=== PATIENT | female | born 1980 | race Caucasian/White ===

== ENCOUNTER 2022-06-22 10:17 | Emergency (ER) | payer OTHER ==
[2022-06-22] MEDS ORDERED: DUONEB 0.5-3 MG/3 ml Neb IH ONE ×2 (10:36→10:44)
[2022-06-22] MEDS ORDERED: HYDROCODONE-ACETAMIN 2.5-108/5 ML SOLUTION PO STA (10:37)
[2022-06-22] MEDS ORDERED: DECADRON 10MG INJ. IV ONE (10:37)
--- NOTE | 2022-06-22 10:41 | ERPHSYRPT ---
- History of Present Illness Time Seen by Provider: 06/22/22 10:24 Source: patient Exam Limitations: no limitations Patient Subjective Stated Complaint: PT states "I am positive for covid and I am coughing so much and not sleeping, I feel terrible." Triage Nursing Assessment: PT presented alert and oriented X 3, skin pwd. Pt tachypneic, coughing, resting comfortably on the bed. Physician History: 42 years old female presented ER with chief complaint of nonproductive cough with fever chills and positive COVID-19 for almost 1 week. Patient reports worsening of cough lately and having shortness of breath with activities and better with resting. Her oxygen is dropping to 88% on room air with activities. Complaining of some chest tightness and heaviness/soreness because of repeated coughing. Her fever broke 2 days ago and now feeling weak fatigued tired with lack of energy to do her routine activities. Timing/Duration: week(s) (1), gradual onset, worse Activities at Onset: activity, rest Severity of Dyspnea-Max: moderate Severity of Dyspnea-Current: moderate Possible Cause: illness exposure Modifying Factors: Worsens With: coughing, exertion Associated Symptoms: cough, chest pain/discomfort, fever, loss of appetite, wheezing, tightness Allergies/Adverse Reactions: No Known Drug Allergies Allergy (Verified 06/22/22 10:24) Home Medications: Sertraline HCl [Zoloft] 100 mg PO DAILY 06/22/22 [History] hydroCHLOROthiazide [Hydrochlorothiazide] 25 mg PO DAILY 06/22/22 [History] Hx Tetanus, Diphtheria Vaccination/Date Given: Yes (4 years ago) Hx Influenza Vaccination/Date Given: Yes (aug) Hx Pneumococcal Vaccination/Date Given: No Travel Risk - International Travel Have you traveled outside of the country in past 3 weeks: No - Coronavirus Screening Are you exhibiting any of the following symptoms?: Yes Symptoms: Cough: New Onset, Shortness of Breath Close contact with a COVID-19 positive Pt in past 14-21 Days: No - Vaccine Status Have you recieved a Covid-19 vaccination: Yes 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: [employer] - Review of Systems Constitutional: Fatigue, Weakness Eyes: No Symptoms Ears, Nose, & Throat: Nose Congestion, Throat Pain, Throat Swelling Respiratory: Cough, Dyspnea, Dyspnea on Exertion (JUAREZ) Cardiac: Chest Pain Abdominal/Gastrointestinal: No Symptoms Genitourinary Symptoms: No Symptoms Musculoskeletal: Myalgias Skin: No Symptoms Neurological: Headache Psychological: No Symptoms Endocrine: No Symptoms Hematologic/Lymphatic: No Symptoms Immunological/Allergic: No Symptoms - Past Medical History Neurological History: No Pertinent History ENT History: No Pertinent History Cardiac History: Hypertension Respiratory History: No Pertinent History Endocrine Medical History: No Pertinent History Musculoskeletal History: No Pertinent History GI Medical History: No Pertinent History History: No Pertinent History Psycho-Social History: No Pertinent History Female Reproductive Disorders: No Pertinent History - Past Surgical History Past Surgical History: No - Social History Smoking Status: Former smoker How long have you smoked: 20 Exposure to second hand smoke: No Drug Use: none Patient Lives Alone: No - Female History Hx Last Menstrual Period: 06/12/2022 Hx Now: No - Nursing Vital Signs Nursing Vital Signs: Initial Vital Signs Temperature 96.4 F 06/22/22 10:17 Pulse Rate 120 H 06/22/22 10:17 Respiratory Rate 26 H 06/22/22 10:17 Blood Pressure 177/99 06/22/22 10:17 O2 Sat by Pulse Oximetry 90 L 06/22/22 10:17 Pain Scale Pain Intensity 0 - Physical Exam General Appearance: no apparent distress, alert Eye Exam: PERRL/EOMI, eyes nml inspection Ears, Nose, Throat Exam: hearing grossly normal, pharyngeal erythema Neck Exam: normal inspection, non-tender, full range of motion Respiratory Exam: normal breath sounds, rhonchi Cardiovascular/Chest Exam: normal heart sounds, tachycardia Abdominal/Gastrointestinal Exam: soft, normal bowel sounds, No tenderness Extremity Exam: non-tender, normal range of motion Neurologic Exam: alert, oriented x 3, cooperative Skin Exam: normal color SpO2 Interpretation: normal SpO2: 94 O2 Delivery: Room Air - Course EKG Interpreted by Me: RATE (92), Sinus Rhythm, NORMAL AXIS, NORMAL INTERVALS, NORMAL QRS Ordered Tests: Active Orders 24 hr Category Date Time Status Reamer Hand STAT Care 06/22/22 10:36 Active EKG-ER Only STAT Care 06/22/22 10:36 Active IV Insertion STAT Care 06/22/22 10:36 Active Oxygen-ED Only Nasal Cannula 2 lpm Care 06/22/22 10:36 Active CHEST 1 VIEW (PORTABLE) Stat Exams 06/22/22 10:36 Taken CHEST WITH CONTRAST [CT] Stat Exams 06/22/22 11:39 Taken BLOOD CULTURE Stat Lab 06/22/22 11:10 Received CBC W DIFF Stat Lab 06/22/22 11:00 Completed CMP Stat Lab 06/22/22 11:00 Completed CULTURE,URINE Stat Lab 06/22/22 Received D-DIMER QUANTITATIVE Stat Lab 06/22/22 11:00 Completed Lactic Acid Stat Lab 06/22/22 10:58 Completed MAGNESIUM Stat Lab 06/22/22 11:00 Completed PROCALCITONIN Stat Lab 06/22/22 11:00 Completed TROPONIN Q4H Lab 06/22/22 11:00 Completed TROPONIN Q4H Lab 06/22/22 14:45 Ordered TROPONIN Q4H Lab 06/22/22 18:45 Ordered UA W/RFX CULTURE Stat Lab 06/22/22 Completed Respiratory Therapy Assessment DAILY RT 06/22/22 11:04 Active Medication Summary Discontinued Medications Generic Name Dose Route Start Last Admin Trade Name Freq PRN Reason Stop Dose Admin Hydrocodone Bitart/Acetaminophen 10 ml 06/22/22 10:37 06/22/22 10:48 Hydrocodone/Acetaminophen 5 Ml Udcup PO 06/22/22 10:38 10 ml STAT STA Administration Hydrocodone Bitart/Acetaminophen Confirm 06/22/22 10:48 Hydrocodone/Acetaminophen 5 Ml Udcup Administered 06/22/22 10:49 Dose 10 ml .ROUTE .STK-MED ONE Albuterol/Ipratropium 3 ml 06/22/22 10:36 06/22/22 10:48 Ipratropium/Albuterol Sulfate 3 Ml Ampul.Neb IH 06/22/22 10:37 3 ml STAT ONE Administration Albuterol/Ipratropium Confirm 06/22/22 10:44 Ipratropium/Albuterol Sulfate 3 Ml Ampul.Neb Administered 06/22/22 10:45 Dose 3 ml IH .STK-MED ONE Dexamethasone Sodium Phosphate 6 mg 06/22/22 10:37 06/22/22 10:48 Dexamethasone Sod Phosphate 10 Mg/Ml IV 06/22/22 10:38 10 mg STAT ONE Administration Dexamethasone Sodium Phosphate Confirm 06/22/22 10:47 Dexamethasone Sod Phosphate 10 Mg/Ml Administered 06/22/22 10:48 Dose 10 mg .ROUTE .STK-MED ONE Lab/Rad Data: Laboratory Result Diagrams 06/22/22 11:00 06/22/22 11:00 Laboratory Results 06/22/22 06/22/22 06/22/22 Range/Units Unknown 11:00 11:00 WBC (4.0-10.5) x10^3/uL RBC (4.1-5.4) x10^6/uL Hgb (12.0-16.0) g/dL Hct (35-47) % MCV (78-100) fL MCH (26-32) pg MCHC (32-36) g/dL RDW (11.5-14.0) % Plt Count (150-450) x10^3/uL MPV (7.5-11.0) fL Gran % (36.0-66.0) % Immature Gran % (Auto) (0.00-0.4) % Nucleat RBC Rel Count (0.00-0.1) % Eos # (Auto) (0-0.5) x10^3/uL Immature Gran # (Auto) (0.00-0.03) x10^3u/L Absolute Lymphs (auto) (1.0-4.6) x10^3/uL Absolute Monos (auto) (0.0-1.3) x10^3/uL Absolute Nucleated RBC (0.00-0.01) x10^3u/L Lymphocytes % (24.0-44.0) % Monocytes % (0.0-12.0) % Eosinophils % (0.00-5.0) % Basophils % (0.0-0.4) % Absolute Granulocytes (1.4-6.9) x10^3/uL Basophils # (0-0.4) x10^3/uL D-Dimer (0.0-0.50) mg/L Sodium (137-145) mmol/L Potassium (3.5-5.1) mmol/L Chloride (98-107) mmol/L Carbon Dioxide (22-30) mmol/L Anion Gap (5-15) MEQ/L BUN (7-17) mg/dL Creatinine (0.52-1.04) mg/dL Estimated GFR ML/MIN Glucose (74-106) mg/dL Lactic Acid (0.4-2.0) Calcium (8.4-10.2) mg/dL Magnesium (1.6-2.3) mg/dL Total Bilirubin (0.2-1.3) mg/dL AST (14-36) U/L ALT (0-35) U/L Alkaline Phosphatase (38-126) U/L Troponin I < 0.012 (0.000-0.034) ng/mL Serum Total Protein (6.3-8.2) g/dL Albumin (3.5-5.0) g/dL Procalcitonin 0.055 (0.030-0.080) ng/mL Urinalys Dipstick Clnc MAIN LAB Urine Color YELLOW (YELLOW) Urine Appearance CLEAR (CLEAR) Urine pH 6.0 (5-6) Ur Specific Milnor 1.015 (1.005-1.025) POC Urine Protein Conf NEGATIVE (Negative) Urine Ketones NEGATIVE (NEGATIVE) Urine Nitrite NEGATIVE (NEGATIVE) Urine Bilirubin NEGATIVE (NEGATIVE) Urine Urobilinogen 0.2 (0-1) mg/dL Urine Leukocytes TRACE (NEGATIVE) Urine WBC (Auto) 3-5 (0-5) /HPF Urine RBC (Auto) NONE (0-2) /HPF U Epithel Cells (Auto) RARE (FEW) /HPF Urine Bacteria (Auto) RARE (NEGATIVE) /HPF Urine RBC TRACE-INTACT (0-5) Harsha/ul Urine Mucus (Auto) SLIGHT (NEGATIVE) /HPF Ur Culture Indicated? YES Urine Glucose NEGATIVE (NEGATIVE) mg/dL 06/22/22 06/22/22 06/22/22 Range/Units 11:00 11:00 11:00 WBC 3.5 L (4.0-10.5) x10^3/uL RBC 4.82 (4.1-5.4) x10^6/uL Hgb 13.9 (12.0-16.0) g/dL Hct 42.2 (35-47) % MCV 87.6 (78-100) fL MCH 28.8 (26-32) pg MCHC 32.9 (32-36) g/dL RDW 12.8 (11.5-14.0) % Plt Count 209 (150-450) x10^3/uL MPV 10.8 (7.5-11.0) fL Gran % 58.8 (36.0-66.0) % Immature Gran % (Auto) 0.9 H (0.00-0.4) % Nucleat RBC Rel Count 0.0 (0.00-0.1) % Eos # (Auto) 0.03 (0-0.5) x10^3/uL Immature Gran # (Auto) 0.03 (0.00-0.03) x10^3u/L Absolute Lymphs (auto) 1.05 (1.0-4.6) x10^3/uL Absolute Monos (auto) 0.32 (0.0-1.3) x10^3/uL Absolute Nucleated RBC 0.00 (0.00-0.01) x10^3u/L Lymphocytes % 30.0 (24.0-44.0) % Monocytes % 9.1 (0.0-12.0) % Eosinophils % 0.9 (0.00-5.0) % Basophils % 0.3 (0.0-0.4) % Absolute Granulocytes 2.06 (1.4-6.9) x10^3/uL Basophils # 0.01 (0-0.4) x10^3/uL D-Dimer 0.62 H* (0.0-0.50) mg/L Sodium 142 (137-145) mmol/L Potassium 3.5 (3.5-5.1) mmol/L Chloride 107 (98-107) mmol/L Carbon Dioxide 27 (22-30) mmol/L Anion Gap 11.2 (5-15) MEQ/L BUN 12 (7-17) mg/dL Creatinine 0.82 (0.52-1.04) mg/dL Estimated GFR > 60.0 ML/MIN Glucose 108 H (74-106) mg/dL Lactic Acid (0.4-2.0) Calcium 9.1 (8.4-10.2) mg/dL Magnesium 2.1 (1.6-2.3) mg/dL Total Bilirubin 0.40 (0.2-1.3) mg/dL AST 92 H (14-36) U/L ALT 119 H (0-35) U/L Alkaline Phosphatase 61 (38-126) U/L Troponin I (0.000-0.034) ng/mL Serum Total Protein 7.2 (6.3-8.2) g/dL Albumin 4.0 (3.5-5.0) g/dL Procalcitonin (0.030-0.080) ng/mL Urinalys Dipstick Clnc Urine Color (YELLOW) Urine Appearance (CLEAR) Urine pH (5-6) Ur Specific Milnor (1.005-1.025) POC Urine Protein Conf (Negative) Urine Ketones (NEGATIVE) Urine Nitrite (NEGATIVE) Urine Bilirubin (NEGATIVE) Urine Urobilinogen (0-1) mg/dL Urine Leukocytes (NEGATIVE) Urine WBC (Auto) (0-5) /HPF Urine RBC (Auto) (0-2) /HPF U Epithel Cells (Auto) (FEW) /HPF Urine Bacteria (Auto) (NEGATIVE) /HPF Urine RBC (0-5) Harsha/ul Urine Mucus (Auto) (NEGATIVE) /HPF Ur Culture Indicated? Urine Glucose (NEGATIVE) mg/dL 06/22/22 Range/Units 10:58 WBC (4.0-10.5) x10^3/uL RBC (4.1-5.4) x10^6/uL Hgb (12.0-16.0) g/dL Hct (35-47) % MCV (78-100) fL MCH (26-32) pg MCHC (32-36) g/dL RDW (11.5-14.0) % Plt Count (150-450) x10^3/uL MPV (7.5-11.0) fL Gran % (36.0-66.0) % Immature Gran % (Auto) (0.00-0.4) % Nucleat RBC Rel Count (0.00-0.1) % Eos # (Auto) (0-0.5) x10^3/uL Immature Gran # (Auto) (0.00-0.03) x10^3u/L Absolute Lymphs (auto) (1.0-4.6) x10^3/uL Absolute Monos (auto) (0.0-1.3) x10^3/uL Absolute Nucleated RBC (0.00-0.01) x10^3u/L Lymphocytes % (24.0-44.0) % Monocytes % (0.0-12.0) % Eosinophils % (0.00-5.0) % Basophils % (0.0-0.4) % Absolute Granulocytes (1.4-6.9) x10^3/uL Basophils # (0-0.4) x10^3/uL D-Dimer (0.0-0.50) mg/L Sodium (137-145) mmol/L Potassium (3.5-5.1) mmol/L Chloride (98-107) mmol/L Carbon Dioxide (22-30) mmol/L Anion Gap (5-15) MEQ/L BUN (7-17) mg/dL Creatinine (0.52-1.04) mg/dL Estimated GFR ML/MIN Glucose (74-106) mg/dL Lactic Acid 1.2 (0.4-2.0) Calcium (8.4-10.2) mg/dL Magnesium (1.6-2.3) mg/dL Total Bilirubin (0.2-1.3) mg/dL AST (14-36) U/L ALT (0-35) U/L Alkaline Phosphatase (38-126) U/L Troponin I (0.000-0.034) ng/mL Serum Total Protein (6.3-8.2) g/dL Albumin (3.5-5.0) g/dL Procalcitonin (0.030-0.080) ng/mL Urinalys Dipstick Clnc Urine Color (YELLOW) Urine Appearance (CLEAR) Urine pH (5-6) Ur Specific Milnor (1.005-1.025) POC Urine Protein Conf (Negative) Urine Ketones (NEGATIVE) Urine Nitrite (NEGATIVE) Urine Bilirubin (NEGATIVE) Urine Urobilinogen (0-1) mg/dL Urine Leukocytes (NEGATIVE) Urine WBC (Auto) (0-5) /HPF Urine RBC (Auto) (0-2) /HPF U Epithel Cells (Auto) (FEW) /HPF Urine Bacteria (Auto) (NEGATIVE) /HPF Urine RBC (0-5) Harsha/ul Urine Mucus (Auto) (NEGATIVE) /HPF Ur Culture Indicated? Urine Glucose (NEGATIVE) mg/dL - Progress Progress: improved Air Movement: good Progress Note: 06/22/22 14:02 42 years old is evaluated for worsening shortness of breath/cough with positive COVID-19. Patient oxygen saturation is around 98% on room air at resting and with ambulation drops down to the lowest 92% while in the ER after breathing tr eatment. Patient is feeling much improved after DuoNeb. She is also given Decadron. Lab work consistent with COVID etiology with low white count and some elevation in liver enzymes. Obtained CTA chest because of elevated D-dimers and it was a suboptimal study but does not have any central embolus and questionable filling defect which according to radiologist could be a artifact versus very small PE. 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 She is moving around okay and it is reasonable to discharge her home with nebs and steroid. She is reliable and would return to ER for any worsening of condition which are discussed and she seems understanding. 06/22/22 14:08 Also discussed risk and benefits of antiviral Paxilovid for COVID-19 which she declined. Antibiotics given: No Counseled pt/family regarding: lab results, diagnosis, rad results - Departure Departure Disposition: Home Clinical Impression: COVID-19, Acute viral bronchitis Condition: Stable Critical Care Time: No [facility]errals[facility] [Primary Care Provider] - Follow up/PCP as directed JEANETH WRIGHT DO [ACTIVE STAFF] - Follow Up with PCP/3 days Instructions: COVID-19 (DC), Acute Bronchitis, Adult (DC) Additional Instructions: Use nebulizer every 4-6 hour as needed. Follow-up with primary care for reevaluation. Take Tylenol/ibuprofen as needed for aches pains/fever chills. Return to ER for increasing shortness of breath, persistent fever, chest pain or palpitations etc. Prescriptions: Dexamethasone [Decadron] 6 mg PO DAILY #5 tablet Albuterol/Ipratropium 3ml Neb* [DUONEB 0.5-3 MG/3 ml Neb] 3 ml IH Q4-6HPRN PRN 10 Days #60 amp PRN Reason: Shortness Of Breath
[2022-06-22] MEDS ORDERED: DECADRON 10MG INJ. ONE (10:47)
[2022-06-22] MEDS ORDERED: HYDROCODONE-ACETAMIN 2.5-108/5 ML SOLUTION ONE (10:48)
[2022-06-22 11:22] LABS: Absolute Neutrophil Ct (ANC) 2.06 x10^3/uL (1.4-6.9); Basophil (Absolute #) 0.01 x10^3/uL (0-0.4); Eosinophil % 0.9 % (0.00-5.0); Eosinophil (Absolute #) 0.03 x10^3/uL (0-0.5); Hematocrit 42.2 % (35-47); Hemoglobin 13.9 g/dL (12.0-16.0); Lymphocyte (Absolute #) 1.05 x10^3/uL (1.0-4.6); Mean Cell Volume 87.6 fL (78-100); Mean Corpuscular Hemoglobin 28.8 pg (26-32); Mean Corpuscular Hgb Concent. 32.9 g/dL (32-36); Mean Platelet Volume 10.8 fL (7.5-11.0); Monocyte (Absolute #) 0.32 x10^3/uL (0.0-1.3); Monocytes % 9.1 % (0.0-12.0); Neutrophil % 58.8 % (36.0-66.0); Platelet Count 209 x10^3/uL (150-450); Red Blood Count 4.82 x10^6/uL (4.1-5.4); Red Cell Distribution Width 12.8 % (11.5-14.0); White Blood Count 3.5 x10^3/uL (4.0-10.5)
[2022-06-22 11:25] LABS: Appearance CLEAR (CLEAR); Bacteria RARE /HPF (NEGATIVE); Bilirubin NEGATIVE (NEGATIVE); Dipstick done @ ? MAIN LAB; Epithelial Cells RARE /HPF (FEW); Glucose NEGATIVE (NEGATIVE); Ketones NEGATIVE (NEGATIVE); Mucus SLIGHT /HPF (NEGATIVE); Nitrite NEGATIVE (NEGATIVE); Protein,Urine Dip NEGATIVE (Negative); RBC TRACE-INTACT Ery/ul (0-5); Specific Gravity 1.015 (1.005-1.025); Urobilinogen 0.2 mg/dL (0-1)
[2022-06-22 11:26] LABS: Urine Cultured Indicated? YES
[2022-06-22 11:29] LABS: ALKALINE PHOSPHATASE 61 U/L (38-126); ANION GAP 11.2 MEQ/L (5-15); BLOOD UREA NITROGEN 12 mg/dL (7-17); CHLORIDE 107 mmol/L (98-107); Calcium 9.1 mg/dL (8.4-10.2); Carbon Dioxide 27 mmol/L (22-30); Creatinine 1 0.82 mg/dL (0.52-1.04); EST GLOMERULAR FILTRATION RATE > 60.0 ML/MIN; Glucose 108 mg/dL (74-106); MAGNESIUM 2.1 mg/dL (1.6-2.3); Potassium 3.5 mmol/L (3.5-5.1); SGOT/AST 92 U/L (14-36); SGPT/ALT 119 U/L (0-35); SODIUM 142 mmol/L (137-145); Total Protein 7.2 g/dL (6.3-8.2)
[2022-06-22 14:26] VITALS: BP 134/100; PULSE 78; O2SAT 97
--- NOTE | 2022-06-22 20:52 | XRAY ---
Indication: Chest pain. Positive Covid 19. Elevated d-dimer. Multiple contiguous axial images obtained through the chest using 100 cc Isovue 370 contrast and PE protocol. Comparison: None Adequate opacification of the pulmonary arteries. No pulmonary embolus. Heart not enlarged. Aorta is normal in course and caliber. No pathologic mediastinal/hilar lymphadenopathy. Lungs inflated with subtle patchy diffuse left upper lobe groundglass airspace disease. No consolidation or effusion. Bony thorax intact with minimal degenerative changes throughout the spine. Limited upper abdomen demonstrates fatty liver, cholecystectomy clips, and 3.1 cm right adrenal adenoma. Impression: 1. Negative pulmonary embolus. 2. Subtle patchy left upper lobe groundglass airspace disease. 3. Incidental fatty liver and right adrenal adenoma. Comment: Preliminary interpretation made by [facility] who does not report the left lung findings. Telephone report was given to the ordering clinician Dr. Addison at 1250 hrs. on June 22, 2022.
--- NOTE | 2022-06-22 20:54 | XRAY ---
Indication: Cough and short of breath. Positive Covid 19. Comparison: None Portable chest demonstrates CT proven patchy left upper lobe groundglass airspace disease. Remaining heart, lungs, and bony thorax unremarkable.
== END 2022-06-22 14:43 | disposition home or self-care (01) ==
LOC: ED 10:17
DX: U07.1 COVID-19 (principal); J20.8 Acute bronchitis due to other specified organisms; R05.9 Cough, unspecified; R50.9 Fever, unspecified; R06.02 Shortness of breath; R07.89 Other chest pain; R53.1 Weakness; R53.83 Other fatigue; I10 Essential (primary) hypertension; Z79.899 Other long term (current) drug therapy; Z79.52 Long term (current) use of systemic steroids
CPT/HCPCS: 36000; 36415; 71045; 71260; 80053; 81015; 83605; 83735; 84145; 84484; 85025; 85379; 87040; 87086; 93005; 93041; 94640; 96374; 99284; J1100; A9270-GY